=== PATIENT | male | born 2000 | race Caucasian/White ===

== ENCOUNTER 2022-03-25 15:32 | Emergency (ER) | payer SELFPAY ==
[2022-03-25] VITALS (9 sets, daily range): BP systolic 128–155; BP diastolic 72–95; PULSE 100–122; RESP 18–22; TEMP 38.2; O2SAT 95–98; BMI 29.7
--- NOTE | 2022-03-25 16:33 | W.ED.GENADLT ---
HPI - General Adult General: Chief complaint: General Medical Stated complaint: Bite between shoulder blades fever, swollen feet Time Seen by Provider: 03/25/22 16:12 History of Present Illness: Patient is a 21-year-old male without any significant past medical history presents the emergency room with concerns of fever, neck pain and rash since 10 AM this morning. Patient tells me that he was bitten in the back by something. Patient does not recall what he was bitten by. Since then, patient has noticed erythema and induration in the back. Also patient noticed his feet has been red and swollen. Patient complains of neck pain and reports fever since then. Patient denies any cough runny nose sore throat chest pain, shortness breath palpitation nausea/vomiting, diarrhea. Onset:10am Duration:ongoing Location:home Severity:moderate Associated symptoms: Reports rash; Deny chest pain, dyspnea, nausea, palpitations or vomiting Review of Systems Const: Denies: fever(s) or chills Eyes: Denies: change in vision ENMT: Denies: mouth pain Card: Denies: chest pain or palpitations Resp: Denies: dyspnea or non-productive cough GI: Denies: abdominal pain, nausea, vomiting or diarrhea : Denies: dysuria Musc: Denies: extremity pain Skin/Breast: Reports: rash and new lesions (+b/l foot erythema, +L upper back confluent erythema and induration) Neuro: Denies: weakness in extremities Psych: Reports: other (Normal mood) Héctor/Lymph: Denies: easy bruising PFSH ED PFSH: Medical History No pertinent past medical history Social History Smoking and tobacco status: never smoked Alcohol intake: never Substance/Drug Use: never Physical Exam Const: COMMON NORMALS: alert HENMT: COMMON NORMALS: atraumatic HEAD & SCALP: atraumatic MOUTH: moist mucous membranes not abnormal Eye: COMMON NORMALS: EOMs intact bilaterally and conjunctivae normal CONJUNCTIVA: Yes conjunctivae normal Neck/C-Spine: COMMON NORMALS: full ROM and supple Resp: COMMON NORMALS: normal respiratory effort and clear to auscultation bilaterally AUSCULTATION: clear to auscultation bilaterally Cardio: RATE: tachycardic GI: COMMON NORMALS: Soft to palpation and non-tender PALPATION: Yes Soft to palpation Extremity: COMMON NORMALS: full ROM Neuro: SENSORIUM/ORIENTATION: Yes alert MOTOR EXAM: No Abnormal motor strength present and Other motor observations present (no focal motor deficits) Psych: COMMON NORMALS: speech normal SPEECH: Yes normal speech MOOD & AFFECT: Yes euthymic mood Skin: NARRATIVE SKIN EXAM: +L upper back induration , non-blanching petchiae over the back, +b/l lower feet erythema, no crepitus, bulla, no necrotic lesions +erythema over the feet b/l Procedures Lumbar Puncture Time Out Performed: Yes Patient Position: right lateral decubitus Skin Prep: Povidone-Iodine 1% Local Anesthetic: lidocaine 1% Amount of anesthesia used (mL): 5 Spinal Needle Gauge: 22G Interspace Used: L4-L5 Fluid Initially Obtained: clear Complications: none Additional Comments: A time-out was performed. My hands were washed immediately prior to the procedure. I wore a surgical cap, mask with protective eyewear, sterile gown and sterile gloves throughout the procedure. The patient was placed in the L4-L5 position with help from the nursing staff. The area was cleansed and draped in usual sterile fashion using betadine scrub. Anesthesia was achieved with 1% lidocaine. A 22-gauge spinal needle was placed in the L4-L5 lumbar interspace. On the 3 attempt, cleared colored cerebral spinal fluid was obtained. CSF was collected into 4 tubes. These were sent for the usual tests, including 1 tube to be held for further analysis if needed. A sterile bandaid was placed over the puncture site. The patient had no immediate complications and tolerated the procedure well. Estimated blood loss was 0. Course Vital Signs: Vital signs: Vital Signs Temperature 98.0 F 03/26/22 01:09 Pulse Rate 112 H 03/26/22 01:49 Respiratory Rate 17 03/26/22 01:49 Blood Pressure 140/85 03/26/22 01:49 Pulse Oximetry 97 03/26/22 01:49 MDM - General Adult Medical Decision Making 21-year-old male presenting to the emergency room with concerns for rash fever/chills, headache and neck pain. Febrile 100.8 and tachycardiac to 120s. Patient has nonblanching ptechaie on his back and erythema over the feet b/l. No visible purpura. She received Tylenol and 2L of fluid. Initial white count of 13.1K. Lactate of 3.1. Repeat lactate appears to be improved. However on reassessment, patient is noted to have worsening erythema now with spread to the face with periorbital edema. No oropharyngeal involvement. Patient has no signs of respiratory compromise. Patient received vancomycin, ceftriaxone, and doxycycline for empiric coverage for bacterial meningitis and tick fever. We performed a lumbar puncture. Please refer to the procedure note. Lumbar puncture is negative for any suggestions of meningitis. Lumbar puncture culture sent Given worsening progression of rash, case was discussed with Dr. Sinclair for admission. Dr. Sinclair recommended transfer as this could be early dermatological emergency. Tick panel has been sent. Case was discussed with Dr. Mesa who agreed with the transfer to PICU at [facility] for close observation. Disposition: Transfer to outside hospital Lab Data : 03/25/22 17:42 03/25/22 17:42 Laboratory Results WBC 13.1 10^3/uL (4.5-13.0) H 03/25/22 17:42 RBC 5.81 10^6/uL (4.1-5.3) H 03/25/22 17:42 Hgb 17.1 g/dL (11.7-16.6) H 03/25/22 17:42 Hct 48.2 % (42.0-52.0) 03/25/22 17:42 MCV 83.0 fl (80-94) 03/25/22 17:42 MCH 29.4 pg (28.0-34.0) 03/25/22 17:42 MCHC 35.5 g/dL (30.0-36.0) 03/25/22 17:42 RDW 12.2 % (12.1-15.1) 03/25/22 17:42 Plt Count 269 10^3/cmm (130-400) 03/25/22 17:42 MPV 9.5 fL (7.4-10.4) 03/25/22 17:42 Neut % (Auto) 88.5 % 03/25/22 17:42 Lymph % (Auto) 5.7 % 03/25/22 17:42 [place] % (Auto) 4.4 % 03/25/22 17:42 Eos % (Auto) 0.7 % 03/25/22 17:42 Baso % (Auto) 0.4 % 03/25/22 17:42 Neut # (Auto) 11.61 10^3/uL (1.8-8.0) H 03/25/22 17:42 Lymph # (Auto) 0.8 10^3/uL (1.5-6.5) L 03/25/22 17:42 [place] # (Auto) 0.6 10^3/uL (0.2-0.9) 03/25/22 17:42 Eos # (Auto) 0.1 10^3/uL (0.0-0.8) 03/25/22 17:42 Baso # (Auto) 0.1 10^3/uL (0.0-0.1) 03/25/22 17:42 Nucleated RBC % (auto) 0 % 03/25/22 17:42 Nucleated RBCs # 0.0 /100WBC 03/25/22 17:42 Sodium 133 mmol/L (136-145) L 03/25/22 17:42 Potassium 4.0 mmol/L (3.5-5.1) 03/25/22 17:42 Chloride 96 mmol/L (98-107) L 03/25/22 17:42 Carbon Dioxide 23 mmol/L (22-29) 03/25/22 17:42 Anion Gap 18.0 (5-19) 03/25/22 17:42 BUN 10 mg/dL (6-20) 03/25/22 17:42 Creatinine 0.8 mg/dL (0.7-1.2) 03/25/22 17:42 GFR Calculation 124.5 mL/min (90-130) 03/25/22 17:42 Glucose 93 mg/dL (65-115) 03/25/22 17:42 Calculated Osmolality 275 mOsm/kg (285-295) L 03/25/22 17:42 Lactate 1.8 mmol/L (0.5-2.2) 03/25/22 20:37 Calcium 9.7 mg/dL (8.5-10.5) 03/25/22 17:42 Total Bilirubin 0.8 mg/dL (0.15-1.2) 03/25/22 17:42 AST 29 U/L (0-40) 03/25/22 17:42 ALT 56 U/L (0-41) H 03/25/22 17:42 Alkaline Phosphatase 125 IU/L (40-130) 03/25/22 17:42 Total Protein 8.0 g/dL (6.6-8.7) 03/25/22 17:42 Albumin 4.8 g/dL (3.5-5.2) 03/25/22 17:42 Globulin 3.2 g/dL (1.3-4.6) 03/25/22 17:42 Lipase 23 U/L (13-60) 03/25/22 17:42 CSF Appearance Clear (CLEAR) 03/25/22 17:42 CSF Color Colorless (COLORLESS) 03/25/22 17:42 CSF WBC 2 /uL (0-5) 03/25/22 17:42 CSF RBC 0 10^3/uL (0-0) 03/25/22 17:42 CSF Mononuclear # Auto 0.002 10^3/uL (50-90) L 03/25/22 17:42 CSF Mononuclear WBCs % 100 % (50-90) H 03/25/22 17:42 CSF Polynuclear WBCs # 0.000 10^3/uL (0-10) 03/25/22 17:42 CSF Polynuclear WBCs % 0 % (0-10) 03/25/22 17:42 CSF Diff Comment Yes 03/25/22 17:42 CSF Glucose 58 mg/dL (40-70) 03/25/22 17:42 CSF Total Protein 54 mg/dL (15-45) H 03/25/22 17:42 Nasal Influ A H1 2009 PCR Not detected (NOT DETECT) 03/25/22 17:42 Adenovirus (PCR) Not detected (NOT DETECT) 03/25/22 17:42 C. pneumoniae DNA (PCR) Not detected (NOT DETECT) 03/25/22 17:42 Coronavirus 229E (PCR) Not detected (NOT DETECT) 03/25/22 17:42 Human Metapneumovir PCR Not detected (NOT DETECT) 03/25/22 17:42 Influenza A (H1) PCR Not detected (NOT DETECT) 03/25/22 17:42 Influenza A (H3) PCR Not detected (NOT DETECT) 03/25/22 17:42 Influenza Type A (PCR) Not detected (NOT DETECT) 03/25/22 17:42 Influenza Type B (PCR) Not detected (NOT DETECT) 03/25/22 17:42 M. pneumoniae (PCR) Not detected (NOT DETECT) 03/25/22 17:42 Parainfluenza 1 (PCR) Not detected (NOT DETECT) 03/25/22 17:42 Parainfluenza 2 (PCR) Not detected (NOT DETECT) 03/25/22 17:42 Parainfluenza 3 (PCR) Not detected (NOT DETECT) 03/25/22 17:42 Parainfluenza 4 (PCR) Not detected (NOT DETECT) 03/25/22 17:42 RSV Type A (PCR) Not detected (NOT DETECT) 03/25/22 17:42 RSV Type B (PCR) Not detected (NOT DETECT) 03/25/22 17:42 Entero/Rhino (PCR) Not detected (NOT DETECT) 03/25/22 17:42 SARS-CoV-2 (PCR) Not detected (NOT DETECT) 03/25/22 17:42 Discharge Plan Discharge Patient Disposition: Transfer to ED Clinical Impression: Erythema, Fever, Tachycardia Condition: Stable Prescriptions: No Action No Known Home Medications 0RF Coding Level of Care Code ED [employer] for [employer]f Fwd Exam Comprehensive
--- NOTE | 2022-03-25 17:49 | PC.NURSE ---
Dr Leong placed iv via ultrasound x3 attempts
[2022-03-25] MEDS: cefTRIAXone 2,000 MG in sodium chloride 0.9% (plus) 50 ML 100 MG IV (17:51)
[2022-03-25 17:55] LABS: Basophils # 0.1 10^3/uL (0.0-0.1); Basophils % 0.4 %; Eosinophils # 0.1 10^3/uL (0.0-0.8); Eosinophils % 0.7 %; Hematocrit 48.2 % (42.0-52.0); Hemoglobin 17.1 g/dL (11.7-16.6); Lymphocytes # 0.8 10^3/uL (1.5-6.5); Lymphocytes % 5.7 %; Mean Corpuscular HGB Conc 35.5 g/dL (30.0-36.0); Mean Corpuscular Hemoglobin 29.4 pg (28.0-34.0); Mean Platelet Volume 9.5 fL (7.4-10.4); Monocytes # 0.6 10^3/uL (0.2-0.9); Monocytes % 4.4 %; Neutrophils # 11.61 10^3/uL (1.8-8.0); Neutrophils % 88.5 %; Nucleated Red Blood Cells % 0 %; Platelet Count 269 10^3/cmm (130-400); Red Blood Count 5.81 10^6/uL (4.1-5.3); Red Cell Distribution Width 12.2 % (12.1-15.1); White Blood Count 13.1 10^3/uL (4.5-13.0)
[2022-03-25] MEDS: sodium chloride 0.9% 1,000 ML 999 ML IV ×2 (17:56→20:05)
[2022-03-25] MEDS: acetaminophen 500 mg Tablet 1000 MG PO (18:00)
[2022-03-25 18:21] LABS: Alanine Aminotransferase 56 U/L (0-41); Albumin Level 4.8 g/dL (3.5-5.2); Alkaline Phosphatase 125 IU/L (40-130); Aspartate Amino Transferase 29 U/L (0-40); Blood Urea Nitrogen 10 mg/dL (6-20); Calcium 9.7 mg/dL (8.5-10.5); Carbon Dioxide 23 mmol/L (22-29); Chloride 96 mmol/L (98-107); Globulin 3.2 g/dL (1.3-4.6); Glomerular Filtration Rate 124.5 mL/min (90-130); Glucose 93 mg/dL (65-115); Lipase 23 U/L (13-60); Osmolality Calculated 275 mOsm/kg (285-295); Sodium 133 mmol/L (136-145); Total Bilirubin 0.8 mg/dL (0.15-1.2)
[2022-03-25 18:22] LABS: Lactate (Lactic Acid level) 3.1 mmol/L (0.5-2.2)
[2022-03-25] MEDS: doxycycline 100 MG in sodium chloride 0.9% (plus) 100 ML IV (18:33)
--- NOTE | 2022-03-25 19:29 | PC.NURSE ---
at bedside durring lumbar puncture, pt tolerated well, mom also at bedside, pt instructed to lay flat for approx 1 hour
[2022-03-25 19:49] LABS: Cyto Order Verification No Order
[2022-03-25 20:04] LABS: Adenovirus Not Detected (NOT DETECT); Chlamydia Pneumoniae Not Detected (NOT DETECT); Coronavirus 229E,HKU1,NL63,OC4 Not Detected (NOT DETECT); Human Metapneumovirus Not Detected (NOT DETECT); Human Rhinovirus/Enterovirus Not Detected (NOT DETECT); Influenza A Not Detected (NOT DETECT); Influenza A H1 Not Detected (NOT DETECT); Influenza A H1-2009 Not Detected (NOT DETECT); Influenza A H3 Not Detected (NOT DETECT); Influenza B Not Detected (NOT DETECT); Mycoplasma Pneumoniae Not Detected (NOT DETECT); Parainfluenza Virus Type 1 Not Detected (NOT DETECT); Parainfluenza Virus Type 2 Not Detected (NOT DETECT); Parainfluenza Virus Type 3 Not Detected (NOT DETECT); Parainfluenza Virus Type 4 Not Detected (NOT DETECT); Respiratory Syncytial Virus A Not Detected (NOT DETECT); Respiratory Syncytial Virus B Not Detected (NOT DETECT); SARS-COV-2 Not Detected (NOT DETECT)
[2022-03-25 20:09] LABS: Appearance CSF CLEAR (CLEAR); Color CSF COLORLESS (COLORLESS); Pathology Referral Yes
[2022-03-25 20:10] LABS: CSF Mononuclear # 0.002 10^3/uL (50-90); Mononuclear WBC CSF % 100 % (50-90); Polynuclear WBC CSF % 0 % (0-10); Red Blood Cell CSF 0 10^3/uL (0-0); White Blood Cell CSF 2 /uL (0-5)
[2022-03-25 20:17] LABS: Glucose CSF 58 mg/dL (40-70); Total Protein CSF 54 mg/dL (15-45)
[2022-03-25 21:12] LABS: Lactate (Lactic Acid level) 1.8 mmol/L (0.5-2.2)
[2022-03-26 01:09] VITALS: BP 145/87; PULSE 118; RESP 16; TEMP 36.7; O2SAT 96
[2022-03-26 01:49] VITALS: BP 140/85; PULSE 112; RESP 17; O2SAT 97
[2022-03-26 15:24] LABS: Bacillus cereus group Not Detected (NOT DETECT); Bacillus subtillis group Not Detected (NOT DETECT); Corynebacterium Not Detected (NOT DETECT); Cutibacterium acnes (P.acnes) Not Detected (NOT DETECT); Enterococcus Not Detected (NOT DETECT); Enterococcus faecalis Not Detected (NOT DETECT); Enterococcus faecium Not Detected (NOT DETECT); Lactobacillus species Not Detected (NOT DETECT); Listeria Not Detected (NOT DETECT); Listeria monocytogenes Not Detected (NOT DETECT); Micrococcus Not Detected (NOT DETECT); Pan Candida Not Detected (NOT DETECT); Pan Gram-Negative Not Detected (NOT DETECT); Staphylococcus epidermidis Not Detected (NOT DETECT); Staphylococcus lugdunensis Not Detected (NOT DETECT); Staphylococcus species Detected (NOT DETECT); Streptococcus agalactiae Not Detected (NOT DETECT); Streptococcus anginosus group Not Detected (NOT DETECT); Streptococcus pneumoniae Not Detected (NOT DETECT); Streptococcus pyogenes Not Detected (NOT DETECT); Streptococcus species Not Detected (NOT DETECT); mecA Not Detected (NOT DETECT); mecC Not Detected (NOT DETECT)
[2022-03-27 13:34] LABS: Lyme AB Screen <0.90 index
[2022-03-29 16:57] LABS: West Nile Virus AB (IGG) <1.30 index; West Nile Virus AB (IGM) <0.90 index
[2022-03-29 18:53] LABS: Lyme Disease AB (IGG),IBL NO BANDS DETECTED; Lyme Disease AB (IGM), IBL NO BANDS DETECTED
[2022-03-29 23:37] LABS: VDRL on CSF NON-REACTIVE
[2022-03-30 16:27] LABS: AQP4 AB Titer CSF NEGATIVE (NEGATIVE)
[2022-03-30 17:41] LABS: St. Louis Enceph.Virus IGG CSF <1:1; St. Louis Enceph.Virus IGM CSF <1:1
[2022-03-31 17:48] LABS: RMSF IGG NOT DETECTED; RMSF IGM NOT DETECTED
[2022-03-31 21:28] LABS: E. Chaffeensis AB IGG <1:64; E. Chaffeensis AB IGM <1:20
[2022-04-02 17:52] LABS: Oligoclonal Bands IGG, CSF ABSENT (ABSENT)
== END 2022-03-26 01:52 ==
PROVIDERS: Emergency Provider Emergency Medicine
DX: L53.9 Erythematous condition, unspecified (principal); R50.9 Fever, unspecified; R00.0 Tachycardia, unspecified
CPT/HCPCS: 80053; 80503; 82945; 83605; 83690; 83916; 84157; 85025; 86225; 86592; 86617; 86618; 86653; 86666; 86757; 86788; 86789; 87040; 87070; 87075; 87150; 87205; 87327; 87486; 87581; 87633; 89050; 96365; 96367; 99285; J0696; J3370; J3490; J7030; J7040